=== PATIENT | female | born 2000 | race Hispanic/Latino ===

== ENCOUNTER 2025-03-04 13:41 | Outpatient (CLI) | payer BC | END 2025-03-04 13:42 | disposition home or self-care (01) | LOC: BICRAD 13:41 | PROVIDERS: ATTEND Student in an Organized Health Care Education/Training Program | DX: S83.004A Unspecified dislocation of right patella, initial encounter (principal) ==

== ENCOUNTER 2025-05-17 09:51 | Outpatient (CLI) | payer BC | END 2025-05-17 09:52 | disposition home or self-care (01) | LOC: BICMRI 09:51 | PROVIDERS: ATTEND Student in an Organized Health Care Education/Training Program | DX: S83.004A Unspecified dislocation of right patella, initial encounter (principal); S80.01XA Contusion of right knee, initial encounter; M22.8X1 Other disorders of patella, right knee ==